=== PATIENT | male | born 1965 | race Caucasian/White ===

== ENCOUNTER 2019-05-28 06:49 | Emergency (ER) | payer OTHER ==
[~2019-05-28] VITALS: Ht 190.5 cm; Wt 80.3 kg
[~2019-05-28 06:49] MED LIST: ACET500 PO; ALBU90OI; ALBU90OI INH; Bactrim Ds Tab1 EACH PO; CEPH500 PO; CYCL10 PO; Cleocin HCl150 MG PO; Cleocin HCl300 MG PO; HYDACE5 PO; METR500 PO; NABU500; NAPR500 PO; NAPR550 PO; Naprosyn500 MG PO; OXYACE5T PO; PRED20 PO; PROM25 PO; RXTRAM50 PO; TRAM50 PO; Ultram50 MG PO
[2019-05-28] MEDS ORDERED: MUCINEX D ER 61 EACH PO (08:18)
[2019-05-28] MEDS ORDERED: BENZ100A PO (08:18)
== END 2019-05-28 08:33 | disposition home or self-care (01) ==
LOC: ER 06:49
DX: J06.9 Acute upper respiratory infection, unspecified (principal); Z88.0 Allergy status to penicillin; Z88.5 Allergy status to narcotic agent; Z79.899 Other long term (current) drug therapy; Z87.891 Personal history of nicotine dependence
CPT/HCPCS: 99283

== ENCOUNTER 2023-02-05 12:43 | Emergency (ER) | payer OTHER ==
[~2023-02-05] VITALS: Ht 190.5 cm; Wt 80.3 kg
[~2023-02-05 12:43] MED LIST changes: +BENZ100A PO; +MUCINEX D ER 61 EACH PO
[2023-02-05 13:56] LABS: Hematocrit 40.2 % (37.0-53.0); Hemoglobin 14.2 g/dL (13.5-17.5); Mean Corpuscular HGB 32.3 pg (26.0-34.0); Mean Corpuscular HGB Conc 35.3 g/dL (31.5-36.5); Mean Corpuscular Volume 91 fL (80-100); Mean Platelet Volume 10.5 fL (9.1-12.4); Platelet Count 200 K/mm3 (150-400); RDW Coefficient Variation 13.2 % (11.7-14.2); RDW Standard Deviation 44.7 fL (35.1-46.3); White Blood Cell Count 9.21 K/mm3 (4.00-11.30)
[2023-02-05 14:16] LABS: Albumin, Blood 3.4 g/dL (3.4-5.0); Albumin/Globulin Ratio 0.7 (0.8-1.8); Bilirubin, Total 0.6 mg/dL (0.1-1.0); Bun/Creatinine Ratio 15.6 (12.0-20.0); Calcium, Blood 8.8 mg/dL (8.5-10.1); Creatinine, Blood 1.09 mg/dL (0.60-1.20); Globulin, Blood 4.8 g/dL (2.2-4.0); Potassium, Blood 3.9 mmol/L (3.5-5.5); Total Protein, Blood 8.2 g/dL (6.4-8.2)
[2023-02-05 15:44] LABS: BASOPHILS PERCENT MAN 0 % (0-2); TOTAL CELLS COUNTED 100
[2023-02-05 15:51] LABS: EOSINOPHILS ABSOLUTE MAN 0.46 K/mm3 (0.00-0.68); EOSINOPHILS PERCENT MAN 5 % (0-6); LYMPHOCYTES % ATYPICAL MANUAL 9 % (0-0); LYMPHOCYTES ABSOLUTE MAN 5.52 K/mm3 (0.84-5.20); LYMPHOCYTES PERCENT MAN 51 % (21-46); MONOCYTES ABSOLUTE MAN 0.27 K/mm3 (0.16-1.47); MONOCYTES PERCENT MAN 3 % (4-13); NEUTROPHILS ABSOLUTE MAN 2.94 K/mm3 (1.96-9.15); SEG NEUTROPHILS PERCENT MAN 32 % (41-73)
[2023-02-05 16:45] VITALS: BP 165/95
== END 2023-02-05 16:47 | disposition home or self-care (01) ==
LOC: ER 12:43
PROVIDERS: Physician Assistant
DX: R60.0 Localized edema (principal); Z88.0 Allergy status to penicillin; Z88.5 Allergy status to narcotic agent; F17.210 Nicotine dependence, cigarettes, uncomplicated
CPT/HCPCS: 80053; 85025

== ENCOUNTER 2023-03-20 21:37 | Emergency (ER) | payer OTHER ==
[~2023-03-20] VITALS: Ht 190.5 cm; Wt 80.3 kg
[2023-03-20 21:44] VITALS: BP 204/118
[2023-03-20] MEDS ORDERED: Cleocin HCl150 MG PO (23:08)
== END 2023-03-20 23:24 | disposition home or self-care (01) ==
LOC: ER 21:37
DX: K04.7 Periapical abscess without sinus (principal); F17.210 Nicotine dependence, cigarettes, uncomplicated; Z88.0 Allergy status to penicillin; Z88.5 Allergy status to narcotic agent
CPT/HCPCS: 99282; A9270